=== PATIENT | female | born 1970 | race Caucasian/White ===

== ENCOUNTER → 2018-06-17 | Outpatient (CLI) | payer OTHER | END | disposition home or self-care (01) | LOC: MI 15:00 | PROC: B030ZZZ Magnetic Resonance Imaging (MRI) of Brain (ICD-10-PCS; principal; 2018-06-17) | DX: I24.9 Acute ischemic heart disease, unspecified (principal); I10 Essential (primary) hypertension; I63.9 Cerebral infarction, unspecified ==